=== PATIENT | male | born 1965 | race Caucasian/White ===

== ENCOUNTER 2023-05-27 06:00 | Day surgery (SDC) | payer OTHER ==
[~2023-05-27] VITALS: Ht 193 cm; Wt 99.8 kg
[2023-05-27] MEDS ORDERED: ONDANSETRON 4 MG ODT TAB PO PRN (08:30)
[2023-05-27] MEDS ORDERED: LR 1,000 ML IV.SOLN IV ONE (08:56)
[2023-05-27] MEDS ORDERED: PROPOFOL 200MG/ 20ML VIAL (DIPRIVAN) IV ONE (08:56)
[2023-05-27] MEDS ORDERED: METOPROLOL TARTRATE 5 MG/5 ML VIAL ONE (08:56)
[2023-05-27] MEDS ORDERED: MIDAZOLAM HCL 2 MG/2 ML VIAL (VERSED) ONE ×3 (08:56→13:00)
[2023-05-27] MEDS ORDERED: fentaNYL CITRATE/PF 100 MCG/2 ML AMP ONE (08:56)
[2023-05-27] MEDS ORDERED: LIDOCAINE 2%, 20 ML MDV ONE (08:56)
[2023-05-27] MEDS ORDERED: SUGAMMADEX SODIUM 200 MG/2 ML VIAL IV ONE (08:56)
[2023-05-27] MEDS ORDERED: NS IRRIG SOLN 1000 ML IR ONE (08:56)
[2023-05-27] MEDS ORDERED: BUPIVACAINE /PF 0.25% 30 ML VIAL INJ ONE (08:56)
[2023-05-27] MEDS ORDERED: ROCURONIUM BROMIDE 10 MG/ML (ZEMURON) ONE (08:56)
[2023-05-27] MEDS ORDERED: ceFAZolin SODIUM 2 GM VIAL ONE (08:56)
[2023-05-27] MEDS ORDERED: ONDANSETRON HCL 4 MG/2 ML VIAL ONE (08:56)
[2023-05-27] MEDS ORDERED: DEXAMETHASONE SOD PHOSPHATE 4 MG/ML VIAL ONE (08:56)
[2023-05-27] MEDS ORDERED: KETOROLAC TROMETHAMINE 30 MG VIAL ONE (08:56)
[2023-05-27] MEDS ORDERED: DESFLURANE 15 MIN GAS INH ONE (08:56)
[2023-05-27] MEDS ORDERED: TRANEXAMIC ACID 1,000 MG/10 ML VIAL ONE (08:56)
[2023-05-27] MEDS ORDERED: METOCLOPRAMIDE HCL 10 MG/2 ML VIAL IVP PRN (09:45)
[2023-05-27] MEDS ORDERED: MEPERIDINE HCL/PF 25 MG/ML DISP.SYRIN IVP PRN (09:45)
[2023-05-27] MEDS ORDERED: LABETALOL 100 MG/ 20ML VIAL IVP PRN (09:45)
[2023-05-27] MEDS ORDERED: hydrALAZINE HCL 20 MG/ML VIAL IVP PRN (09:45)
[2023-05-27] MEDS ORDERED: ACETAMINOPHEN I.V. 1000 MG 100 ML IV ONE (10:14)
[2023-05-27] MEDS ORDERED: HYDROmorphone 2 MG/ML VIAL ONE (12:31)
[2023-05-27] MEDS: MIDAZOLAM HCL 2 MG/2 ML VIAL (VERSED) IVP PRN ×2 (12:32→13:00)
[2023-05-27] MEDS ORDERED: HYDROmorphone 1 MG/ML INJ. CARTRIDGE ONE ×2 (12:32→12:51)
[2023-05-27] MEDS: HYDROmorphone 1 MG/ML INJ. CARTRIDGE IVP PRN ×5 (12:32→14:19)
[2023-05-27] MEDS: LR 1,000 ML IV SCH (16:12)
[2023-05-27] MEDS: ceFAZolin SODIUM 2 GM in D5W 100 ML IV SCH ×2 (16:33→23:00)
[2023-05-27 16:34] VITALS: BP_SYST 114; PULSE 94; RESP 20; TEMP 98.3
[2023-05-27 16:40] VITALS: O2SAT 99
[2023-05-27] MEDS: OXYCODONE/ACETAMINOPHEN 5-325 TABLET PO PRN ×2 (18:28→23:00)
[2023-05-27 19:41] VITALS: BP_SYST 122; PULSE 94; RESP 20; TEMP 96.4; O2SAT 97; O2SAT 98
[2023-05-28 00:20] VITALS: BP_SYST 155; PULSE 88; RESP 18; TEMP 97; O2SAT 99
[2023-05-28] MEDS: LR 1,000 ML IV SCH ×3 (03:34→15:45)
[2023-05-28] MEDS: OXYCODONE/ACETAMINOPHEN 5-325 TABLET PO PRN (03:38)
[2023-05-28 08:00] VITALS: BP_SYST 137; PULSE 87; RESP 16; TEMP 98.1; O2SAT 100
[2023-05-28] MEDS: ceFAZolin SODIUM 2 GM in D5W 100 ML IV SCH (08:34)
[2023-05-28] MEDS: HYDROmorphone 1 MG/ML INJ. CARTRIDGE IVP PRN (08:35)
[2023-05-28 11:23] VITALS: BP_SYST 128; PULSE 69; RESP 16; TEMP 96.7; O2SAT 100
[2023-05-28] MEDS ORDERED: OXYCODONE/ACETAMINOPHEN *10*mg/325 mg TABLET PO ONE (13:00)
[2023-05-28] MEDS ORDERED: OXYCODONE/ACETAMINOPHEN *10*mg/325 mg TABLET PO SCH (15:00)
[2023-05-28] MEDS: OXYCODONE/ACETAMINOPHEN *10*mg/325 mg TABLET PO SCH ×2 (15:54→19:09)
[2023-05-28] MEDS ORDERED: ACET500P25 PO (18:59)
[2023-05-28] MEDS ORDERED: ACET-2634 PO (19:33)
[2023-05-28] MEDS ORDERED: IBUP-1969 PO (19:34)
[2023-05-28] MEDS ORDERED: OXYIR5 PO (19:34)
[2023-05-28 19:43] VITALS: BP_SYST 132; PULSE 73; RESP 16; TEMP 98.2; O2SAT 100
== END 2023-05-28 19:00 | disposition home or self-care (01) ==
LOC: SMU 06:00 → SDS 06:00 → SMU 16:02 → SDS 05-28 19:00
PROVIDERS: ATTEND Orthopaedic Surgery
DX: S42.302A Unspecified fracture of shaft of humerus, left arm, initial encounter for closed fracture (principal); S46.122A Laceration of muscle, fascia and tendon of long head of biceps, left arm, initial encounter; S42.242A 4-part fracture of surgical neck of left humerus, initial encounter for closed fracture; F17.210 Nicotine dependence, cigarettes, uncomplicated; I10 Essential (primary) hypertension; G62.9 Polyneuropathy, unspecified; N40.1 Benign prostatic hyperplasia with lower urinary tract symptoms; F41.1 Generalized anxiety disorder; F90.9 Attention-deficit hyperactivity disorder, unspecified type; M48.061 Spinal stenosis, lumbar region without neurogenic claudication; M85.80 Other specified disorders of bone density and structure, unspecified site; Z21 Asymptomatic human immunodeficiency virus [HIV] infection status; Z86.73 Personal history of transient ischemic attack (TIA), and cerebral infarction without residual deficits; F32.A Depression, unspecified; F60.5 Obsessive-compulsive personality disorder; Z79.82 Long term (current) use of aspirin; Z79.899 Other long term (current) drug therapy; X58.XXXA Exposure to other specified factors, initial encounter; Y93.89 Activity, other specified; Y92.89 Other specified places as the place of occurrence of the external cause; Y99.8 Other external cause status
CPT/HCPCS: 87081; 24515; 23430; 76000; 97162; 97530; 97116; 97760; J3490 ×3; J1100; J1885; J3465; J2405; J2704; J3010; J1170 ×3; J7060; J7120; C1713 ×14; J0131; J2001